=== PATIENT | female | born 1975 | race Two or more races ===

== ENCOUNTER 2020-05-25 12:30 | Inpatient (IN) | payer OTHER ==
[~2020-05-25] VITALS: Ht 165.1 cm; Wt 70.3 kg
== END 2020-06-02 18:41 | disposition home or self-care (01) | DRG 741 ==
LOC: SURG 06-01 07:08 → O/R 06-01 07:08 → SURH 06-01 12:30 → SURG 06-01 21:03 → SURH 06-01 23:45 → SURG 06-02 18:41
PROVIDERS: ADMIT Obstetrics & Gynecology Gynecologic Oncology; ATTEND Obstetrics & Gynecology Gynecologic Oncology
PROC: 0UB74ZZ Excision of Bilateral Fallopian Tubes, Percutaneous Endoscopic Approach (ICD-10-PCS; 2020-06-01)
PROC: 07BC4ZZ Excision of Pelvis Lymphatic, Percutaneous Endoscopic Approach (ICD-10-PCS; 2020-06-01)
PROC: 0UT94ZZ Resection of Uterus, Percutaneous Endoscopic Approach (ICD-10-PCS; principal; 2020-06-01 23:45)
DX: D06.0 Carcinoma in situ of endocervix (principal); N80.0 Endometriosis of uterus; N83.8 Other noninflammatory disorders of ovary, fallopian tube and broad ligament